=== PATIENT | female | born 1990 | race Caucasian/White ===

== ENCOUNTER 2017-03-22 15:09 | Emergency (ER) | payer OTHER ==
[~2017-03-22] VITALS: Ht 160 cm; Wt 68.8 kg
[~2017-03-22 15:09] MED LIST: [UNRECOGNIZED DRUG - OTHER] INJ
[2017-03-22 15:26] VITALS: TEMP 36.6; Ht 160 cm; Wt 68.8 kg
[2017-03-22] MEDS ORDERED: ONDANSETRON INJ 2 MG/ML 2 ML VIAL IV STA (16:58)
[2017-03-22] MEDS ORDERED: SODIUM CHLORIDE 0.9% 1000ML 1,000 ML IV STA (16:58)
[2017-03-22] MEDS ORDERED: MoRPHine SULFATE 10 MG/ML CARP/VIAL IV STA (16:58)
[2017-03-22] MEDS ORDERED: OPTIRAY 320 IV PRN (17:15)
--- NOTE | 2017-03-22 17:24 | EMERGENCY ROOM VISIT NOTE ---
History First contact with patient: 16:39 Chief Complaint: ABDOMINAL PAIN Stated Complaint: WYATT, STOMACH PAIN ON RT SIDE, BACK PAIN Nursing Triage Summary: Pt states hx of migraines. Per dr nathan, "went off migraine meds about two months ago. I was fine until I got sick on Fri. I had a bad h/a, stomach pains and was throwing up. I couldn't keep anything down for 1.5 days." Continues to have right sided abd pain. History of Present Illness The patient is a 26 year old female who presents to the Emergency Room with complaints of right-sided abdominal pain and migraine. The patient states that she developed a headache 4 days ago. She reports associated nausea and vomiting. She states that she then developed pain in her abdomen. She does report that she ate [employer] prior to the onset of symptoms. Since then, she has had persistent right-sided abdominal pain, headache and nausea. He she reports she has not had an appetite and has not been able to keep any food down. She denies any previous abdominal surgeries. She does report that her urine was foul-smelling approximately one month ago but denies any current urinary symptoms. She denies any abnormal vaginal discharge, chest pain or shortness of breath. She denies fevers/chills. She denies chance of . She rates her discomfort a 7/10. She has tried ibuprofen at home without relief. Review of Systems A complete 10 point review of systems was reviewed with the patient with pertinent positives and negatives as per history of present illness. All else were negative. Family History Diabetes mellitus FH: cancer Seizures Social History Smoking Status: Never Smoker Alcohol Use: none Marital Status: single Housing Status: lives with friends Occupation Status: employed Current/Historical Medications Scheduled Control Pills ( Control Pills), 1 TAB PO DAILY Scheduled PRN Hydrocodone/Acetaminophen 5MG/325MG (Sims 5MG/325MG), 1-2 TABLET PO Q4H PRN for Pain Allergies Coded Allergies: No Known Allergies (Unverified , 02/23/16) Physical Exam Vital Signs Date Time Temp Pulse Resp B/P (MAP) Pulse Ox O2 Delivery O2 Flow Rate FiO2 03/22/17 21:21 74 18 123/74 99 03/22/17 20:08 74 18 123/74 99 Room Air 03/22/17 18:26 89 18 107/81 98 Room Air 03/22/17 15:26 36.6 77 18 138/82 95 Room Air Physical Exam VITALS: Vitals are noted on the nurse's note and reviewed by myself. Vital signs stable. GENERAL: This is a 26-year-old female, in no acute distress, nondiaphoretic, well-developed well-nourished. SKIN: Capillary reflex less than 2 seconds. HEENT: Normocephalic. PERRLA. EOMI. Nares patent. Mucous membranes moist. Neck is supple without nuchal rigidity. HEART: Regular rate and rhythm without murmurs gallops or rubs. LUNGS: Clear to auscultation bilaterally without wheezes, rales or rhonchi. ABDOMEN: Positive bowel sounds x 4. Soft, moderate tenderness over the right lower quadrant. No guarding or rebound tenderness. NEURO: Patient was alert and oriented to person place and time. Medical Decision & Procedures ER Provider Diagnostic Interpretation: CT SCAN OF THE ABDOMEN AND PELVIS WITH IV CONTRAST IMPRESSION: 1. There are no acute infectious or inflammatory findings in the abdomen or pelvis. 2. There is 12 mm of anterolisthesis at L5-S1. There is advanced disc space narrowing at this level and likely severe central canal stenosis. Laboratory Results 03/22/17 18:15 Red Blood Count 4.64, Mean Corpuscular Volume 86.6, Mean Corpuscular Hemoglobin 28.4, Mean Corpuscular Hemoglobin Concent 32.8, Mean Platelet Volume 9.0, Neutrophils (%) (Auto) 71.2, Lymphocytes (%) (Auto) 22.5, Monocytes (%) (Auto) 4.3, Eosinophils (%) (Auto) 1.4, Basophils (%) (Auto) 0.4, Neutrophils # (Auto) 6.39, Lymphocytes # (Auto) 2.02, Monocytes # (Auto) 0.39, Eosinophils # (Auto) 0.13, Basophils # (Auto) 0.04 03/22/17 18:15 Test 03/22/17 18:15 03/22/17 18:25 White Blood Count 8.99 K/uL (4.8-10.8) Red Blood Count 4.64 M/uL (4.2-5.4) Hemoglobin 13.2 g/dL (12.0-16.0) Hematocrit 40.2 % (37-47) Mean Corpuscular Volume 86.6 fL (80-100) Mean Corpuscular Hemoglobin 28.4 pg (25-34) Mean Corpuscular Hemoglobin Concent 32.8 g/dl (32-36) Platelet Count 381 K/uL (130-400) Mean Platelet Volume 9.0 fL (7.4-10.4) Neutrophils (%) (Auto) 71.2 % Lymphocytes (%) (Auto) 22.5 % Monocytes (%) (Auto) 4.3 % Eosinophils (%) (Auto) 1.4 % Basophils (%) (Auto) 0.4 % Neutrophils # (Auto) 6.39 K/uL (1.4-6.5) Lymphocytes # (Auto) 2.02 K/uL (1.2-3.4) Monocytes # (Auto) 0.39 K/uL (0.11-0.59) Eosinophils # (Auto) 0.13 K/uL (0-0.5) Basophils # (Auto) 0.04 K/uL (0-0.2) RDW Standard Deviation 41.9 fL (36.4-46.3) RDW Coefficient of Variation 13.2 % (11.5-14.5) Immature Granulocyte % (Auto) 0.2 % Immature Granulocyte # (Auto) 0.02 K/uL (0.00-0.02) Anion Gap 5.0 mmol/L (3-11) Est Creatinine Clear Calc Drug Dose 95.0 ml/min Estimated GFR () 111.2 Estimated GFR (Non- 95.9 BUN/Creatinine Ratio 15.3 (10-20) Calcium Level 8.8 mg/dl (8.5-10.1) Total Bilirubin 0.3 mg/dl (0.2-1) Aspartate Amino Transf (AST/SGOT) 16 U/L (15-37) Alanine Aminotransferase (ALT/SGPT) 33 U/L (12-78) Alkaline Phosphatase 71 U/L (45-117) Total Protein 7.7 gm/dl (6.4-8.2) Albumin 3.9 gm/dl (3.4-5.0) Globulin 3.8 gm/dl (2.5-4.0) Albumin/Globulin Ratio 1.0 (0.9-2) Lipase 150 U/L (73-393) Urine Color YELLOW Urine Appearance CLEAR (CLEAR) Urine pH 6.5 (4.5-7.5) Urine Specific [place] 1.007 (1.000-1.030) Urine Protein NEG (NEG) Urine Glucose (UA) NEG (NEG) Urine Ketones NEG (NEG) Urine Occult Blood NEG (NEG) Urine Nitrite NEG (NEG) Urine Bilirubin NEG (NEG) Urine Urobilinogen NEG (NEG) Urine Leukocyte Esterase NEG (NEG) Urine Test NEG (NEG) Medications Administered Medications (Trade) Dose Ordered Sig/Yaritza Route Start Time Stop Time Status Last Admin Dose Admin Sodium Chloride 1,000 ml @ 999 mls/hr Q1H1M STAT IV 03/22/17 16:58 03/22/17 17:58 DC 03/22/17 18:23 999 MLS/HR Ondansetron HCl (Zofran Inj) 4 mg NOW STAT IV 03/22/17 16:58 03/22/17 16:59 DC 03/22/17 18:23 4 MG Morphine Sulfate (MoRPHine SULFATE INJ) 6 mg NOW STAT IV 03/22/17 16:58 03/22/17 16:59 DC 03/22/17 18:23 6 MG Acetaminophen/ Hydrocodone Bitart (Sims 5/325mg Home Pack) 1 homepack UD ONCE PO 03/22/17 21:15 03/22/17 21:16 DC 03/22/17 21:17 1 HOMEPACK ED Course The patient was evaluated as above. Labs were drawn and IV access was obtained. Patient was medicated with 6 mg morphine IV and [address] scan was performed and read by radiology as above. Patient was reevaluated and findings were discussed. She was given a homepack of Sims. Discharge instructions were reviewed with the patient. The patient verbalized understanding of my assessment and treatment plan and was discharged home in good condition. Medical Decision Differential diagnosis includes appendicitis, ovarian cyst, gastritis, gastroenteritis, ovarian torsion, ectopic , urinary tract infection, among others. The patient is a 26-year-old female who presents today complaining of right upper quadrant abdominal pain. Labs revealed no leukocytosis, anemia or concerning electrolyte abnormalities. Urinalysis was not suggestive of infection. Urine was negative. CT scan did show evidence of lumbar disc disease, but no acute intra-abdominal pathology. The patient will be given a short course of narcotic and instructed to follow-up with her primary care provider for further evaluation of her pain. She should return here for any worsening or new/concerning symptoms. Based on the patient's presentation and work up, I feel the patient is stable for outpatient treatment. The patient was educated to return to the emergency department for any worsening of their current condition or new/concerning symptoms. She will follow up with primary care provider. Impression Primary Impression: Right lower quadrant abdominal pain Departure Information Dispostion Home / Self-Care Condition GOOD Prescriptions Hydrocodone/Acetaminophen 5MG/325MG (Sims 5MG/325MG) Tab 1-2 TABLET PO Q4H Y for Pain, #10 TAB For Initial Treatment Prov: Leisa Bishop PA-C 03/22/17 Referrals Jeni Childress D.O. (PCP) Patient Instructions My [facility] Additional Instructions You have been treated in the Emergency Department your Abdominal Pain. Laboratory results and imaging studies have ruled out any emergent causes for your abdominal pain which would warrant admission or surgery. CT scan did show a bulging disc in your back. You have been prescribed Sims to be used for pain control. This is a narcotic medication. You cannot drive or consume alcohol while on this medicine. This medicine should only be used for pain that cannot be controlled with over-the- counter pain medicines. For pain control, you can use the following [id number] medicines (if >12 yo): - Regular strength (325mg/tab) Tylenol (acetaminophen) 2 tabs every 4-6 hours as needed. Do not exceed 12 tablets in a 24 hour period. Avoid taking more than 4 grams (4000 mg) of Tylenol per day. This includes any other sources of acetaminophen you may take on a regular basis. - Regular strength (200 mg/tab) Advil (ibuprofen) 1-2 tabs every 4-6 hours as needed. Do not exceed a dose of 3200 mg per day. Drink plenty of water and stay well hydrated. As with any trip to the Emergency Department, you should follow-up with your Primary Care Provider from today's visit. Return to the emergency department if your symptoms worsen or for any new/ concerning symptoms.
[2017-03-22 18:32] LABS: BASO % 0.4 %; BASO ABS # 0.04 K/uL (0-0.2); COMPLETE YES; EOS % 1.4 %; HEMATOCRIT 40.2 % (37-47); IG% 0.2 %; LYMPH % 22.5 %; LYMPH ABS # 2.02 K/uL (1.2-3.4); MEAN CELL VOLUME 86.6 fL (80-100); MEAN CORPUSCULAR HEMOGLOBIN 28.4 pg (25-34); MEAN CORPUSCULAR HGB CONC 32.8 g/dl (32-36); MONO % 4.3 %; NEUT % 71.2 %; PLATELET COUNT 381 K/uL (130-400); RED BLOOD COUNT 4.64 M/uL (4.2-5.4); WHITE BLOOD COUNT 8.99 K/uL (4.8-10.8)
[2017-03-22 18:38] LABS: URINE APPEARANCE CLEAR (CLEAR); URINE BILIRUBIN NEG (NEG); URINE COLOR YELLOW; URINE NITRITE NEG (NEG); URINE PH 6.5 (4.5-7.5); URINE SPECIFIC GRAVITY 1.007 (1.000-1.030); UROBILINOGEN NEG (NEG); ZZUR CULT IF INDIC CLEAN CATCH NO
[2017-03-22 18:49] LABS: MANUAL MICROSCOPIC REQUIRED? NO; REVIEW REQ? NO
[2017-03-22 18:51] LABS: BUN/CREATININE RATIO 15.3 (10-20); CALCIUM 8.8 mg/dl (8.5-10.1); CREATININE 0.85 mg/dl (0.60-1.20); POTASSIUM 3.6 mmol/L (3.5-5.1)
--- NOTE | 2017-03-22 20:31 | DIAGNOSTIC IMAGING REPORT ---
CT SCAN OF THE ABDOMEN AND PELVIS WITH IV CONTRAST CLINICAL HISTORY: Right lower quadrant abdominal pain. COMPARISON STUDY: No priors. TECHNIQUE: Following the IV administration of 116 cc of Optiray 320, CT scan of the abdomen and pelvis is performed from the lung bases to the proximal femora. Images are reviewed in the axial, sagittal, and coronal planes. IV contrast was administered without complication. Automated dose control exposure was utilized. CT DOSE: 315.94 mGy.cm FINDINGS: Lung bases: The heart is normal in size and without pericardial effusion. The lung bases are clear. Liver: The contrast-enhanced liver is normal in size, contour, and attenuation. A subcentimeter hypodensity in segment IV seen on image #76 is of doubtful significance. There is no intrahepatic biliary ductal dilatation. The hepatic veins and portal veins are patent. Gallbladder: Unremarkable. Spleen: Normal in size and attenuation. Pancreas: Unremarkable. Adrenal glands: Unremarkable. Kidneys: The contrast enhanced kidneys are normal in size and without hydronephrosis. The kidneys enhance symmetrically. Abdominal vasculature: The abdominal aorta is normal in course and caliber. Bowel: The small bowel and colon are normal in course and caliber. The appendix is well-visualized and normal. Peritoneum: There is no intraperitoneal free air or abdominal ascites. There is a small fat-containing umbilical hernia. Lymphadenopathy: None. Pelvic viscera: The bladder, uterus, and adnexa are normal as visualized. There are bilateral ovarian follicles. Skeletal structures: No lytic or blastic lesions are seen. Mild lumbar scoliosis is observed. There is 12 mm anterolisthesis at L5-S1 with advanced degenerative disc space narrowing at this level and central canal stenosis. IMPRESSION: 1. There are no acute infectious or inflammatory findings in the abdomen or pelvis. 2. There is 12 mm of anterolisthesis at L5-S1. There is advanced disc space narrowing at this level and likely severe central canal stenosis. Electronically signed by: Los Sinclair M.D. 03/22/2017 8:29 PM Dictated Date/Time: 03/22/2017 8:23 PM
[2017-03-22] MEDS ORDERED: HYDR-5688 PO (21:03)
[2017-03-22] MEDS ORDERED: NORCO 5/325MG HOME PACK PO ONE (21:15)
[2017-03-22 21:21] VITALS: BP 123/74; PULSE 74; O2SAT 99
[2017-03-22] MEDS ORDERED: BCPILLS PO (22:17)
[2017-07-13] MEDS ORDERED: AMT50 PO (09:51)
[2017-09-23] MEDS ORDERED: PRED50TA PO (00:48)
[2017-09-23] MEDS ORDERED: CYCL10TA6 PO (00:48)
== END 2017-03-22 21:23 | disposition home or self-care (01) ==
LOC: C.EDB 15:10 → C.EDC 21:23
DX: R10.11 Right upper quadrant pain (principal); R10.31 Right lower quadrant pain; Z83.3 Family history of diabetes mellitus; Z80.9 Family history of malignant neoplasm, unspecified; Z82.0 Family history of epilepsy and other diseases of the nervous system

== ENCOUNTER 2017-05-17 11:47 | Emergency (ER) | payer OTHER ==
[~2017-05-17] VITALS: Ht 160 cm; Wt 67.6 kg
[~2017-05-17 11:47] MED LIST changes: +BCPILLS PO; +HYDR-5688 PO; -[UNRECOGNIZED DRUG - OTHER] INJ
[2017-05-17 11:49] VITALS: BP 148/79; TEMP 36.7; Ht 160 cm; Wt 67.6 kg
[2017-05-17] MEDS ORDERED: PHENAZOPYRIDINE HCL 200 MG TAB PO STA (12:00)
[2017-05-17] MEDS ORDERED: CEPHALEXIN MONOHYDRATE 250 MG CAP PO STA (12:00)
[2017-05-17] MEDS ORDERED: CEPH500C PO (12:07)
[2017-05-17] MEDS ORDERED: PHEN-876 PO (12:07)
--- NOTE | 2017-05-17 12:07 | EMERGENCY ROOM VISIT NOTE ---
History Report prepared by Danelle: Sofi Dean Under the Supervision of: Dr. Los Crockett M.D. First contact with patient: 11:53 Chief Complaint: URINARY SYMPTOMS Stated Complaint: BURNING WHEN PEEING AND BLEEDING History of Present Illness The patient is a 26 year old female who presents to the Emergency Room with complaints of worsening urinary symptoms beginning yesterday. The patient reports burning pain with urination and blood when she wipes after urinating. She rates her pain as a 6/10 in severity. Her LNMP ended 4 days ago. She has a history of UTIs. The patient denies fever, back pain, nausea, vomiting, diarrhea , abnormal vaginal discharge. Source of History: patient Onset: yesterday Position: other (bladder) Symptom Intensity: 6/10 Quality: burning Timing: worsening Associated Symptoms: + urinary symptoms (pt notes hematuria), No fevers, No nausea, No vomiting, No back pain, No diarrhea Note: Pt denies abnormal vaginal discharge. Review of Systems See HPI for pertinent positives & negatives. A total of 10 systems reviewed and were otherwise negative. Past Medical & Surgical Medical Problems: (1) Headache (2) Ovulation pain (3) Right lower quadrant abdominal pain Family History Diabetes mellitus FH: cancer Seizures Social History Smoking Status: Never Smoker Alcohol Use: none Marital Status: Housing Status: lives with significant other Occupation Status: employed Current/Historical Medications Scheduled Control Pills ( Control Pills), 1 TAB PO DAILY Cephalexin Monohydrate (Keflex), 500 MG PO TID Scheduled PRN Hydrocodone/Acetaminophen 5MG/325MG ([place] 5MG/325MG), 1-2 TABLET PO Q4H PRN for Pain Phenazopyridine HCl (Pyridium), 200 MG PO TID PRN for Frequency/Burning w/ Urination Allergies Coded Allergies: No Known Allergies (Unverified , 02/23/16) Physical Exam Vital Signs Date Time Temp Pulse Resp B/P (MAP) Pulse Ox O2 Delivery O2 Flow Rate FiO2 05/17/17 12:11 69 16 94 05/17/17 11:49 36.7 62 16 148/79 97 Room Air Physical Exam GENERAL: Patient is in no acute distress. HEENT: No acute trauma, normocephalic atraumatic, mucous membranes moist, no nasal congestion, no scleral icterus. NECK: No stridor, no adenopathy, no meningismus, trachea is midline. LUNGS: Clear to auscultation bilaterally, no wheeze, no rhonchi, breath sounds equal. HEART: Without murmurs gallops or rubs, regular rate and rhythm. ABDOMEN: Soft, mildly tender over the bladder, bowel sounds positive, no hernias , no peritonitis. BACK: No flank discomfort to percussion. EXTREMITIES: No cyanosis or edema, full range of motion of all the joints without pain or difficulty, no signs for acute trauma. NEUROLOGIC: Oriented x 3, no acute motor or sensory deficits, no focal weakness. SKIN: No rash, no jaundice, no diaphoresis. Medical Decision & Procedures Laboratory Results Test 05/17/17 11:56 Urine Test NEG (NEG) Laboratory results reviewed by me. Urine dip is positive for blood, nitrates, and leukocytes, consistent with infection. testing negative. Medications Administered Medications (Trade) Dose Ordered Sig/Yaritza Route Start Time Stop Time Status Last Admin Dose Admin Phenazopyridine HCl (Pyridium Tab) 200 mg NOW STAT PO 05/17/17 12:00 05/17/17 12:03 DC 05/17/17 12:05 200 MG Cephalexin Monohydrate (Keflex Cap) 500 mg NOW STAT PO 05/17/17 12:00 05/17/17 12:03 DC 05/17/17 12:06 500 MG ED Course 1153: The patient was evaluated in room C3. A complete history and physical exam was performed. 1200: Keflex 500 mg PO, Pyridium Tab 200 mg PO 1203: I reassessed the patient at this time. I discussed the results and treatment plan with the patient. I answered all pertaining questions that she had. She expressed understanding and verbalized agreement. The patient will be discharged home. Medical Decision Differential diagnoses includes UTI, , pyelonephritis, STD, vaginal irritation. The patient presents with urinary burning and some blood when she wiped after urinating. Urine dip shows evidence of infection, testing is negative. A urine culture has been ordered. The patient has no back pain, she has no fever. She is not toxic or febrile. She is not vomiting. The patient is being discharged with Pyridium and Keflex, oral doses of both were given here prior to discharge. Impression Primary Impression: Urinary tract infection Scribe Attestation The scribe's documentation has been prepared under my direction and personally reviewed by me in its entirety. I confirm that the note above accurately reflects all work, treatment, procedures, and medical decision making performed by me. Departure Information Dispostion Home / Self-Care Prescriptions Phenazopyridine HCl (Pyridium) 200 Mg Tab 200 MG PO TID Y for Frequency/Burning w/Urination, #6 TAB Prov: Los Crockett M.D. 05/17/17 Cephalexin Monohydrate (Keflex) 500 Mg Cap 500 MG PO TID for 5 Days, #15 CAP Prov: Los Crockett M.D. 05/17/17 Referrals Jeni Childress D.O. (PCP) Forms HOME CARE DOCUMENTATION FORM, IMPORTANT VISIT INFORMATION Patient Instructions My [facility] Additional Instructions Keflex 3x per day for 5 days rest fluids Pyridium 3x per day for burning return if worsening Problem Qualifiers Primary Impression: Urinary tract infection Urinary tract infection type: site unspecified Hematuria presence: with hematuria Qualified Codes: N39.0 - Urinary tract infection, site not specified ; R31.9 - Hematuria, unspecified
[2017-05-17 12:11] VITALS: PULSE 69; O2SAT 94
--- NOTE | 2017-05-19 13:21 | Pharmacy Progress Note ---
ED Pharmacist Culture FollowUp Date of Service: May 19, 2017. Patient was sent home with a prescription for cephalexin, which should cover the Proteus growing from the patient's urine culture, based on reported sensitivity to cefazolin..
[2017-07-13] MEDS ORDERED: AMT50 PO (09:51)
== END 2017-05-17 12:12 | disposition home or self-care (01) ==
LOC: C.EDB 11:50 → C.EDC 12:12
DX: N39.0 Urinary tract infection, site not specified (principal); R31.9 Hematuria, unspecified; Z87.440 Personal history of urinary (tract) infections; Z83.3 Family history of diabetes mellitus; Z82.0 Family history of epilepsy and other diseases of the nervous system

== ENCOUNTER → 2017-07-06 | Outpatient (CLI) | payer BC ==
[~2017-07-06] MED LIST changes: +AMT50 PO; -HYDR-5688 PO
--- NOTE | 2017-07-06 17:33 | DIAGNOSTIC IMAGING REPORT ---
MRI OF THE LUMBAR SPINE WITHOUT CONTRAST CLINICAL HISTORY: Lumbago. Sacroiliitis. COMPARISON STUDY: CT of the abdomen and pelvis March 22, 2017. TECHNIQUE: Utilizing a 1.5 Amaya magnet and dedicated coil, multiplanar, multiecho imaging of the lumbar spine was performed without IV contrast. FINDINGS: For purposes of numbering on this exam, the L5-S1 disc space is assigned to axial image 24 of 25. Exam is moderately compromised by motion artifact. There is 1 cm of anterolisthesis of L4 on S1. No definite L5 pars defects are identified. There is mild S-shaped curvature of the lumbar spine. No intracanalicular mass or fluid collection is present. Paravertebral soft tissues are unremarkable. L1-2: The central canal and neural foramen are patent. L2-3: The central canal and neural foramen are patent. L3-4: The central canal and neural foramen are patent. L4-5: The central canal and neural foramen are patent. L5-S1: There is anterolisthesis with uncovering of the disc. Moderate facet arthrosis is present. There is severe narrowing of the central canal with mild bilateral neural foraminal stenosis. IMPRESSION: 1. 1 cm of anterolisthesis of L5 on S1 with no L5 pars defects identified. Findings result in severe central canal narrowing at L5-S1 with mild narrowing of both neural foramen. Moderate facet arthrosis at this level. 2. Mild S-shaped curvature of the lumbar spine. Electronically signed by: Clay Garner M.D. 07/06/2017 5:32 PM Dictated Date/Time: 07/06/2017 4:22 PM
== END | disposition home or self-care (01) ==
LOC: C.MRIBC 13:30
PROVIDERS: ATTEND Physician Assistant Medical
DX: M46.1 Sacroiliitis, not elsewhere classified (principal); M48.07 Spinal stenosis, lumbosacral region; M41.26 Other idiopathic scoliosis, lumbar region; M47.817 Spondylosis without myelopathy or radiculopathy, lumbosacral region

== ENCOUNTER → 2017-07-15 | Outpatient (CLI) | payer BC ==
--- NOTE | 2017-07-15 13:57 | DIAGNOSTIC IMAGING REPORT ---
CHEST 2 VIEWS ROUTINE CLINICAL HISTORY: Fever, cough, flulike symptoms COMPARISON STUDY: No previous studies for comparison. FINDINGS: The cardiac and mediastinal contours are normal. There is no evidence of focal pulmonary consolidation. There is no evidence of failure. No pleural effusions are visualized.[ IMPRESSION: No active disease in the chest. Electronically signed by: Patricio Glass M.D. 07/15/2017 1:55 PM Dictated Date/Time: 07/15/2017 1:55 PM
== END | disposition home or self-care (01) ==
LOC: C.RAD1850 13:40
PROVIDERS: ATTEND Physician Assistant
DX: R05 Cough (principal); R50.9 Fever, unspecified; R68.89 Other general symptoms and signs

== ENCOUNTER → 2017-08-11 | Outpatient (CLI) | payer BC ==
--- NOTE | 2017-08-11 14:36 | DIAGNOSTIC IMAGING REPORT ---
PELVIC COMPLETE NON OB HISTORY: 26 years-old Female AMENORRHEA COMPARISON: CT 03/22/2017 TECHNIQUE: Multiple real-time sonographic images of the deep pelvic structures were obtained transabdominally and transvaginally assessing grayscale appearance, color and spectral flow FINDINGS: TRANSABDOMINAL: Anteflexed uterus measures 5.9 x 2.6 x 3.9 cm. Endometrium measures 0.4 cm. Right ovary measures 3.7 x 1.8 x 1.8 cm with arterial inflow. Left ovary measures 2.8 x 2.0 x 2.1 cm with arterial inflow. TRANSVAGINAL: Anteflexed uterus measures 5.9 x 3.1 x 4.4 cm. No myometrial mass lesion. Endometrium measures 0.5 cm. Right ovary measures 2.1 x 2.3 x 2.3 cm with arterial inflow documented. Left ovary measures 2.3 x 1.5 x 2.5 cm with arterial inflow. No adnexal mass lesions or significant free pelvic fluid. IMPRESSION: Unremarkable sonographic appearance of the uterus, endometrium and ovaries. The above report was generated using voice recognition software. It may contain grammatical, syntax or spelling errors. Electronically signed by: Deandre Vaughn M.D. 08/11/2017 2:35 PM Dictated Date/Time: 08/11/2017 2:28 PM
== END | disposition home or self-care (01) ==
LOC: C.ULTR 13:42
PROVIDERS: ATTEND Family Medicine
DX: N91.2 Amenorrhea, unspecified (principal)

== ENCOUNTER 2017-08-23 23:17 | Emergency (ER) | payer BC ==
[~2017-08-23] VITALS: Ht 160 cm; Wt 69.7 kg
[2017-08-23 23:22] VITALS: TEMP 36.5; Ht 160 cm; Wt 69.7 kg
[2017-08-24] MEDS ORDERED: KETOROLAC TROMETHAMINE 30 MG/ML VIAL IV STA (00:05)
[2017-08-24] MEDS ORDERED: SODIUM CHLORIDE 0.9% 1000ML 1,000 ML IV STA (00:05)
--- NOTE | 2017-08-24 00:20 | EMERGENCY ROOM VISIT NOTE ---
History Report prepared by Danelle: Immanuel Aggarwal Under the Supervision of: Dr. Noel La M.D. First contact with patient: 23:39 Chief Complaint: CARDIAC ASSESSMENT Stated Complaint: CHEST PAINS W/BURNING, LIGHT HEADED Nursing Triage Summary: c/o mid chest pain x 5 hours with nausea. denies cardiac history. History of Present Illness The patient is a 26 year old female who presents to the Emergency Room with complaints of constant chest pain beginning this evening. The patient states that she experienced similar symptoms yesterday. 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 She reports that her chest pain was located in the center of her chest and lasted for an hour before going away. Despite this other episode of chest pain, the patient states that she has not experienced symptoms similar to her current chest pain. She notes that she tried taking a Tums today with no relief of her symptoms and rates her pain as an 8/10. She denies any fevers, chills, cough, congestion, vomiting, SOB, and diarrhea. She notes that she was previously nauseous, but is not nauseous anymore. She denies any family history of early heart attacks. She reports that she has no history of blood clots, but has a history of spondylolisthesis. The patient states that she is not on oral contraception and that there is no chance that she is . She notes that her last normal menstrual period was two weeks ago. She reports that she has a history of migraine and takes headache medications at night. Source of History: patient Onset: this evening Position: chest Symptom Intensity: 8/10 Timing: constant Associated Symptoms: + nausea, No fevers, No chills, No cough, No SOB, No vomiting, No diarrhea Note: she denies any congestion. Review of Systems See HPI for pertinent positives and negatives. A total of ten systems were reviewed and were otherwise negative. Past Medical & Surgical Medical Problems: (1) Headache (2) Ovulation pain (3) Right lower quadrant abdominal pain (4) Spondylolisthesis Family History Diabetes mellitus FH: cancer Seizures Social History Smoking Status: Former Smoker Alcohol Use: none Marital Status: Housing Status: lives with significant other Occupation Status: employed Current/Historical Medications Scheduled Amitriptyline Hcl (Elavil), 10 MG PO HS Scheduled PRN Ibuprofen Tab (Motrin), 800 MG PO Q8H PRN for Pain Allergies Coded Allergies: BEE STING (Verified Allergy, Intermediate, localized swelling, 08/23/17) Physical Exam Vital Signs Date Time Temp Pulse Resp B/P (MAP) Pulse Ox O2 Delivery O2 Flow Rate FiO2 08/24/17 02:11 68 16 113/66 98 08/24/17 00:01 74 16 112/71 96 08/23/17 23:41 80 08/23/17 23:31 77 119/67 99 08/23/17 23:28 99 Ambu-Bag 08/23/17 23:22 36.5 66 20 125/79 99 Room Air Physical Exam GENERAL: Awake, alert, well-appearing, in no distress HENT: Normocephalic, atraumatic. Oropharynx unremarkable. Dry MM. EYES: Normal conjunctiva. Sclera non-icteric. NECK: Supple. No nuchal rigidity. FROM. No JVD. RESPIRATORY: Clear to auscultation. CARDIAC: Regular rate, normal rhythm. Extremities warm and well perfused. Pulses equal. ABDOMEN: Soft, non-distended. No tenderness to palpation. No rebound or guarding. No masses. RECTAL: Deferred. MUSCULOSKELETAL: Mild reproducible left anterior chest wall tenderness. The back is symmetrical on inspection without obvious abnormality. There is no CVA tenderness to palpation. No joint edema. LOWER EXTREMITIES: Calves are equal size bilaterally and non-tender. No edema. No discoloration. NEURO: Normal sensorium. No sensory or motor deficits noted. SKIN: No rash or jaundice noted. Medical Decision & Procedures ER Provider Diagnostic Interpretation: Radiology results as stated below per my review and radiologist interpretation: Chest X-RAY: Normal mediastinum, no gross infiltrates. Laboratory Results 08/23/17 23:38 Red Blood Count 4.67, Mean Corpuscular Volume 86.3, Mean Corpuscular Hemoglobin 29.6, Mean Corpuscular Hemoglobin Concent 34.2, Mean Platelet Volume 9.4, Neutrophils (%) (Auto) 56.6, Lymphocytes (%) (Auto) 32.3, Monocytes (%) (Auto) 9.0, Eosinophils (%) (Auto) 1.5, Basophils (%) (Auto) 0.4, Neutrophils # (Auto) 5.17, Lymphocytes # (Auto) 2.95, Monocytes # (Auto) 0.82, Eosinophils # (Auto) 0.14, Basophils # (Auto) 0.04 08/23/17 23:38 Test 08/23/17 23:38 White Blood Count 9.14 K/uL (4.8-10.8) Red Blood Count 4.67 M/uL (4.2-5.4) Hemoglobin 13.8 g/dL (12.0-16.0) Hematocrit 40.3 % (37-47) Mean Corpuscular Volume 86.3 fL (80-100) Mean Corpuscular Hemoglobin 29.6 pg (25-34) Mean Corpuscular Hemoglobin Concent 34.2 g/dl (32-36) Platelet Count 395 K/uL (130-400) Mean Platelet Volume 9.4 fL (7.4-10.4) Neutrophils (%) (Auto) 56.6 % Lymphocytes (%) (Auto) 32.3 % Monocytes (%) (Auto) 9.0 % Eosinophils (%) (Auto) 1.5 % Basophils (%) (Auto) 0.4 % Neutrophils # (Auto) 5.17 K/uL (1.4-6.5) Lymphocytes # (Auto) 2.95 K/uL (1.2-3.4) Monocytes # (Auto) 0.82 K/uL (0.11-0.59) Eosinophils # (Auto) 0.14 K/uL (0-0.5) Basophils # (Auto) 0.04 K/uL (0-0.2) RDW Standard Deviation 42.8 fL (36.4-46.3) RDW Coefficient of Variation 13.4 % (11.5-14.5) Immature Granulocyte % (Auto) 0.2 % Immature Granulocyte # (Auto) 0.02 K/uL (0.00-0.02) Anion Gap 7.0 mmol/L (3-11) Est Creatinine Clear Calc Drug Dose 86.4 ml/min Estimated GFR () 98.4 Estimated GFR (Non- 84.9 BUN/Creatinine Ratio 14.5 (10-20) Calcium Level 8.8 mg/dl (8.5-10.1) Total Bilirubin 0.2 mg/dl (0.2-1) Direct Bilirubin < 0.1 mg/dl (0-0.2) Aspartate Amino Transf (AST/SGOT) 19 U/L (15-37) Alanine Aminotransferase (ALT/SGPT) 28 U/L (12-78) Alkaline Phosphatase 79 U/L (45-117) Troponin I < 0.015 ng/ml (0-0.045) Total Protein 7.8 gm/dl (6.4-8.2) Albumin 3.9 gm/dl (3.4-5.0) Lipase 181 U/L (73-393) Human Chorionic Gonadotropin, Qual NEG (NEG) Laboratory results reviewed by me Medications Administered Medications (Trade) Dose Ordered Sig/Yaritza Route Start Time Stop Time Status Last Admin Dose Admin Sodium Chloride 1,000 ml @ 999 mls/hr Q1H1M STAT IV 08/24/17 00:05 08/24/17 01:05 DC 08/24/17 00:15 999 MLS/HR Ketorolac Tromethamine (Toradol Inj) 30 mg NOW STAT IV 08/24/17 00:05 08/24/17 00:10 DC 08/24/17 00:16 30 MG ECG Indication: chest pain Rate (beats per minute): 69 Rhythm: normal sinus Findings: no acute ischemic change, other (normal axis) ED Course 2359: The patient was evaluated in room C2. A complete history and physical exam was performed. 0205: I reevaluated and updated the patient. She will go home. 0224: I reevaluated the patient. Discussed results and discharge instructions: She verbalized understanding and agreement. The patient is ready for discharge. Medical Decision I reviewed the patient's past medical history, medications, and the nursing notes as described above. Differential diagnoses include: muscular strain, costochondritis, pneumonia, bronchitis, ACS, and pericarditis. The patient is a 26 y/o woman who presents to the ED with the c/o constant CP per HPI. On arrival the patient is uncomfortable but in NAD. AFVSS. EKG unremarkable. CXR negative. Labs unremarkable including wbc wnl and trop negative in the setting of constant pain. Heart score 1, low risk, thus ACS not likely. Patient feeling improved after IVF, toradol. Given reproducibility sx most c/w muscular strain. Findings and plan for follow-up reviewed with patient. Patient agreeable and d/c'd per discharge instructions. Medication Reconcilliation Current Medication List: was personally reviewed by me Blood Pressure Screening Patient's blood pressure: Normal blood pressure Impression Primary Impression: Chest wall pain Scribe Attestation The scribe's documentation has been prepared under my direction and personally reviewed by me in its entirety. I confirm that the note above accurately reflects all work, treatment, procedures, and medical decision making performed by me. Departure Information Dispostion Home / Self-Care Prescriptions Ibuprofen Tab (MOTRIN) 800 Mg Tab 800 MG PO Q8H Y for Pain for 7 Days, #21 TAB Prov: Noel La M.D. 08/24/17 Referrals Jeni Childress D.O. (PCP) Forms IMPORTANT VISIT INFORMATION Patient Instructions ED Chest Pain Costochondritis, My [facility] Additional Instructions Please follow up with your primary care physician in the next 1-3 days for re- evaluation. You likely have a muscular strain. Otherwise, your exam, EKG, chest xray, and lab results did not show signs of an emergent condition at this time. Ibuprofen for pain as needed. Ensure hydration. Return to the emergency department for worsening symptoms as described in the accompanying instructions.
[2017-08-24 00:26] LABS: BASO % 0.4 %; BASO ABS # 0.04 K/uL (0-0.2); COMPLETE YES; EOS % 1.5 %; HEMATOCRIT 40.3 % (37-47); IG% 0.2 %; LYMPH % 32.3 %; LYMPH ABS # 2.95 K/uL (1.2-3.4); MEAN CELL VOLUME 86.3 fL (80-100); MEAN CORPUSCULAR HEMOGLOBIN 29.6 pg (25-34); MEAN CORPUSCULAR HGB CONC 34.2 g/dl (32-36); MEAN PLATELET VOLUME 9.4 fL (7.4-10.4); NEUT % 56.6 %; PLATELET COUNT 395 K/uL (130-400); RED BLOOD COUNT 4.67 M/uL (4.2-5.4); WHITE BLOOD COUNT 9.14 K/uL (4.8-10.8)
[2017-08-24 00:33] LABS: ALT/SGPT 28 U/L (12-78); BLOOD UREA NITROGEN 14 mg/dl (7-18); BUN/CREATININE RATIO 14.5 (10-20); CALCIUM 8.8 mg/dl (8.5-10.1); CARBON DIOXIDE 28 mmol/L (21-32); CHLORIDE 106 mmol/L (98-107); CREATININE 0.94 mg/dl (0.60-1.20); GLUCOSE 86 mg/dl (70-99); SODIUM 141 mmol/L (136-145)
[2017-08-24 00:39] LABS: ALKALINE PHOSPHATASE 79 U/L (45-117); AST/SGOT 19 U/L (15-37)
[2017-08-24 00:43] LABS: PREG INTERNAL NEGATIVE QC NEG CLEAR BACKGROUND; PREG INTERNAL POSITIVE QC POS CONTROL LINE
[2017-08-24] MEDS ORDERED: IBUP-1451 PO (01:58)
[2017-08-24 02:11] VITALS: BP 113/66; PULSE 68; O2SAT 98
--- NOTE | 2017-08-24 06:29 | DIAGNOSTIC IMAGING REPORT ---
CHEST ONE VIEW PORTABLE CLINICAL HISTORY: Atypical chest pain COMPARISON STUDY: 07/15/2017 FINDINGS: The cardiac and mediastinal contours are normal. There is no evidence of focal pulmonary consolidation. There is no evidence of failure. No pleural effusions are visualized.[ IMPRESSION: No active disease in the chest. Electronically signed by: Patricio Glass M.D. 08/24/2017 6:28 AM Dictated Date/Time: 08/24/2017 6:28 AM
== END 2017-08-24 02:12 | disposition home or self-care (01) ==
LOC: C.EDB 23:18 → C.EDC 08-24 02:12
DX: R07.89 Other chest pain (principal); M43.10 Spondylolisthesis, site unspecified; Z83.3 Family history of diabetes mellitus; Z80.9 Family history of malignant neoplasm, unspecified; Z87.891 Personal history of nicotine dependence; Z79.899 Other long term (current) drug therapy

== ENCOUNTER 2017-10-26 16:27 | Emergency (ER) | payer BC, OTHER ==
[~2017-10-26] VITALS: Ht 160 cm; Wt 69.6 kg
[~2017-10-26 16:27] MED LIST changes: -BCPILLS PO
[2017-10-26 16:38] VITALS: TEMP 36.6; Ht 160 cm; Wt 69.6 kg
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
[2017-10-26] MEDS ORDERED: AMIT10TA6 PO (17:43)
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
[2017-10-26 19:02] VITALS: BP 106/64; PULSE 62; O2SAT 97
== END 2017-10-26 18:58 | disposition home or self-care (01) ==
LOC: C.EDB 16:29 → C.EDD 18:58
DX: M25.562 Pain in left knee (principal); R42 Dizziness and giddiness; V49.40XA Driver injured in collision with unspecified motor vehicles in traffic accident, initial encounter; Y93.89 Activity, other specified; Y99.8 Other external cause status; Z83.3 Family history of diabetes mellitus; Z82.0 Family history of epilepsy and other diseases of the nervous system

== ENCOUNTER → 2018-05-30 | Outpatient (CLI) | payer OTHER ==
[~2018-05-30] MED LIST changes: +AMIT10TA6 PO; -AMT50 PO
--- NOTE | 2018-05-30 13:09 | DIAGNOSTIC IMAGING REPORT ---
PELVIC ULTRASOUND CLINICAL HISTORY: Irregular menses. COMPARISON STUDY: Pelvic ultrasound August 11, 2017. TECHNIQUE: Transabdominal and transvaginal sonography of the pelvis was performed. FINDINGS: The uterus measures 6.4 x 3.2 x 3.7 cm. Endometrium is normal in thickness, measuring 8 mm. There is no free fluid. There is no adnexal mass. The right ovary measures 2.3 x 2 x 1.9 cm and the left ovary measures 2.1 x 2.1 x 1.9 cm. There are numerous follicles within each ovary (approximately 20). IMPRESSION: 1. Unremarkable pelvic ultrasound. 2. Numerous small follicles within each ovary (approximately 20). This is likely within normal limits. Polycystic ovarian syndrome is considered less likely however could be correlated clinically. Electronically signed by: Clay Garner M.D. 05/30/2018 1:08 PM Dictated Date/Time: 05/30/2018 10:42 AM
== END | disposition home or self-care (01) ==
LOC: C.ULTR 09:37
PROVIDERS: ATTEND Family Medicine
DX: N92.6 Irregular menstruation, unspecified (principal)

== ENCOUNTER 2020-06-03 03:15 | Inpatient (IN) ==
[2020-06-03] MEDS: LACTATED RINGER'S 1,000 ML IV PRN ×3 (03:57→09:15)
[2020-06-03] MEDS ORDERED: PENICILLIN G POTASSIUM 6 MU in DEXTROSE 5% 250 ML IV STA (04:12)
[2020-06-03] MEDS ORDERED: OXYTOCIN 30 UNITS/500 ML BAG IV PRN ×2 (04:12→12:27)
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
[2020-06-03] MEDS ORDERED: PENICILLIN G POTASSIUM 3 MU in DEXTROSE 5% 100 ML IV PRN (04:30)
[2020-06-03 04:47] LABS: Hematocrit (blood only) 31.9 % (37-47); Hemoglobin 10.7 g/dL (12.0-16.0); Mean Corpuscular Hemoglobin 29.2 pg (25-34); Mean Corpuscular Volume 87.2 fL (80-100); Mean Platelet Volume 10.4 fL (7.4-10.4); Platelet Count 217 K/uL (130-400); RDW Coefficient of Variation 13.6 % (11.5-14.5); RDW Standard Deviation 43.4 fL (36.4-46.3); Red Blood Count 3.66 M/uL (4.2-5.4); White Blood Count 10.54 K/uL (4.8-10.8)
[2020-06-03 05:14] LABS: Fibrinogen 404 mg/dl (184-400); INR 0.9 (0.9-1.1); Prothrombin Time 9.8 Seconds (9.0-12.0)
[2020-06-03 05:15] LABS: Mean Corpuscular Hgb Conc 33.5 g/dL (32-36)
[2020-06-03] MEDS ORDERED: ePHEDrine sulfate 50 MG/ML AMP ONE (07:50)
[2020-06-03] MEDS ORDERED: fentaNYL citrate 100 MCG/2 ML VIAL ONE (07:50)
[2020-06-03] MEDS ORDERED: BUPIVACAINE 0.25% 30 ML VIAL ONE (07:50)
[2020-06-03] MEDS ORDERED: fentaNYL 2MCG/ML ROPIV 1.25MG/ML 100 ML BAG EPI ONE (07:51)
--- NOTE | 2020-06-03 07:51 | History & Physical Report ---
Date of Service June 03, 2020 Assessment & Plan (1) Spontaneous rupture of amniotic membranes: 29 yo at 37.6 wks admitted with SROM, VB, GBS+ in early labor VSS Afebrile FHR reassuring Coags and bed side US normal AROM'ed with clear fluid Plan for epidural for pain and monitor continuously All questions were answered (2) Vaginal bleeding during : (3) GBS (group B Streptococcus carrier), +RV culture, currently : History of Present Illness Primary Care Provider: Mel Fuchs MD Patient is a 29 yo at 37.[address] Hernandez this morning for SROM and in early labor Patient sates she had gush of bloody leaking at 0250 am, contractions started at 2100 last night but got closer and more regular after ROM +FM's Her VSS and FHR had been categ I and she was expectantly managed Coags and bed side US were normal Her has been uncomplicated except 1) GBS+, received 1st dose of PCN 2) Spondylolisthesis: needed anesthesia consult 3) Migraines Allergies Allergy/AdvReac Type Severity Reaction Status Date / Time amitriptyline Allergy Intermediate LIGHTHEADEDNESS, Verified 06/03/20 03:46 EYES ROLL BACK bee venom protein (honey bee) Allergy Intermediate localized Verified 06/03/20 03:46 swelling Home Medications Home Medications Medication Instructions Recorded Confirmed Type PNV cmb#95-ferrous fumarate-FA 1 tab PO QAM 12/25/18 06/03/20 History [] Patient History Medical History Chronic migraine Hx of abnormal cervical Pap smear Polycystic ovarian disease Spondylolisthesis Surgical History No significant past surgical history Family History Other No pertinent family history Social History Smoking Status: Never smoker Hx Alcohol Use: No Hx Substance Use: No Preferred Language: Finnish Communication Ability: Effective Cost Analyst Required: No Beliefs That Will Affect Care: None marital status: Current Living Situation: Spouse and Family Current Living Situation Comment: lives with , sister in law and nephew current occupational status: employed Other Information That Helps Us Care for You: No Feels Safe at Home: Yes Safety Concerns: Feels Safe At This Time [employer] History No h/o STD's, no h/o HSV Review of Systems All systems reviewed & are unremarkable except as noted in HPI & below Physical Exam Constitutional: WD/WN, vitals as above well developed, well nourished and + acute distress (uncomfortable with ctxs) Gastrointestinal (Abdomen): Abd: soft, NT, gravid, no epig or RUQ tenderness Bed side US: Vertex, placenta fundal posterior, appears normal, no collection seen, AFV adequate and appears clear Genitourinary: normal external appearance VE; small blood on pad, no blood when she coughs, Cervix 4-5cm/ 60%/ -2, bulging bag, AROM'ed clear fluid Results & Data Vital Signs (Past 12 Hours) Vital Signs Temp Pulse Resp BP 06/03/20 07:13 62 103/63 06/03/20 07:12 36.5 C 62 18 103/63 06/03/20 05:38 36.4 C L 18 06/03/20 03:44 36.9 C 18 06/03/20 03:35 78 112/76 Laboratory Results Lab Results 06/03/20 06/03/20 06/03/20 Range/Units 04:32 04:32 04:37 WBC 10.54 (4.8-10.8) K/uL RBC 3.66 L (4.2-5.4) M/uL Hgb 10.7 L (12.0-16.0) g/dL Hct 31.9 L (37-47) % MCV 87.2 (80-100) fL MCH 29.2 (25-34) pg MCHC 33.5 (32-36) g/dL RDW Std Deviation 43.4 (36.4-46.3) fL RDW Coeff of Bennett 13.6 (11.5-14.5) % Plt Count 217 (130-400) K/uL MPV 10.4 (7.4-10.4) fL PT 9.8 (9.0-12.0) Seconds INR 0.9 (0.9-1.1) Fibrinogen 404 H (184-400) mg/dl Blood Type O Positive Antibody Screen NEGATIVE Code Status & VTE Plan VTE Prophylaxis Plan VTE Prophylaxis will be ordered: No Monitoring External Monitor FHR: 130's, categ I, moderate variability, accels+, no decels Tocodynamometer Contractions q 2-3 min
--- NOTE | 2020-06-03 08:13 | Anesthesiology Consultation ---
Date of Service June 03, 2020 Assessment & Plan Chart Review Chart Review: Acceptable Risk for Surgery, Patient NOT seen in Pre Admission Testing and Acceptable Risk for Labor Epidural Consults Requested none ASA ASA2 Proposed Anesthesia Anesthesia Type: Labor Epidural and CSE History Height/Weight Height: 5 ft 3 in Weight: 68.492 kg Allergies Allergy/AdvReac Type Severity Reaction Status Date / Time amitriptyline Allergy Intermediate LIGHTHEADEDNESS, Verified 06/03/20 03:46 EYES ROLL BACK bee venom protein (honey bee) Allergy Intermediate localized Verified 06/03/20 03:46 swelling Medications Home Medications Medication Instructions Recorded Confirmed Last Taken PNV cmb#95-ferrous fumarate-FA 1 tab PO QAM 12/25/18 06/03/20 06/02/20 08:00 [] Active Medications Generic Name Dose Route Start Last Admin Trade Name Freq PRN Reason Stop Dose Admin Lactated Ringer's 1,000 mls @ 125 mls/hr 06/03/20 04:12 06/03/20 05:53 Lr IV 06/05/20 04:11 125 mls/hr .Q8H PRN Infusion L&D Protocol Protocol Past Medical History Medical History Chronic migraine Hx of abnormal cervical Pap smear Polycystic ovarian disease Spondylolisthesis Exercise / Class Metabolic Activity II 4-5 Yardwork/Stairs/Walk up hill Past Family History Family History Other No pertinent family history Past Surgical History Surgical History No significant past surgical history Past Anesthesia History No Hx of Anesthesia Complications and No Family Hx of Anesthesia Complications History of PONV No Hx of PONV and No Hx of Motion Sickness Social History Smoking Status: Never smoker Hx Alcohol Use: No Hx Substance Use: No substance use type: does not use Physical Exam Vital Signs Last Vital Signs Temp 36.5 C 06/03/20 07:12 Pulse 64 06/03/20 08:01 Resp 18 06/03/20 07:12 BP 117/79 06/03/20 08:01 Testing Laboratory Results 06/03/20 04:32 PT 9.8 Seconds (9.0-12.0) 06/03/20 04:37 INR 0.9 (0.9-1.1) 06/03/20 04:37 Blood Type O Positive 06/03/20 04:32 Antibody Screen NEGATIVE 06/03/20 04:32
[2020-06-03] MEDS ORDERED: ONDANSETRON INJ 2 MG/ML 2 ML VIAL IV PRN (08:51)
[2020-06-03] MEDS ORDERED: fentaNYL 2MCG/ML ROPIV 1.25MG/ML 100 ML BAG EPI PRN (08:51)
[2020-06-03] MEDS ORDERED: PROMETHAZINE HCL 25 MG in SODIUM CHLORIDE 0.9% 50 ML IV PRN (08:51)
[2020-06-03] MEDS ORDERED: ePHEDrine sulfate 50 MG/ML AMP IV PRN (08:51)
[2020-06-03] MEDS ORDERED: NALOXONE HCL 1 MG in SODIUM CHLORIDE 0.9% 1000ML 1,000 ML IV PRN (08:51)
[2020-06-03] MEDS ORDERED: DiphenhydrAMINE HCL 50 MG/ML VIAL IV PRN (08:51)
[2020-06-03] MEDS ORDERED: NALOXONE HCL 0.4 MG/1 ML VIAL/CARP IV PRN (08:51)
--- NOTE | 2020-06-03 11:47 | Obstetrical Progress Note ---
Date of Service June 03, 2020 Assessment & Plan Admission and Anticipated Discharge Date Admission Date: June 03, 2020 Subjective I checked her at 0935 and she had no blood on her pads She has been resting and started to feel leaking Bloody amniotic fluid on pads+ VE; 10/100%/+2, patient feels pressure and wants to push FHR categ I, good variability and accels, no decels Will push with ctxs and anticipate Results & Data ([facility]) Vital Signs (Past 12 Hours) Vital Signs Temp Pulse Resp BP Pulse Ox 06/03/20 11:43 81 100 06/03/20 11:40 99 H 92 06/03/20 11:38 109 H 100 06/03/20 11:33 78 98 06/03/20 11:30 69 108/72 06/03/20 11:28 72 97 06/03/20 11:23 70 100 06/03/20 11:18 69 100 06/03/20 11:14 77 96/59 L 06/03/20 11:13 78 100 06/03/20 11:08 81 100 06/03/20 11:03 73 99 06/03/20 10:59 72 97/62 L 06/03/20 10:58 70 99 06/03/20 10:53 80 100 06/03/20 10:48 100 H 100 06/03/20 10:44 71 100/62 06/03/20 10:43 79 100 06/03/20 10:38 70 99 06/03/20 10:33 72 99 06/03/20 10:28 68 103/58 L 98 06/03/20 10:25 85 104/69 06/03/20 10:23 83 97 06/03/20 10:22 75 100/56 L 06/03/20 10:19 72 91/55 L 06/03/20 10:18 65 96 06/03/20 10:16 71 96/57 L 06/03/20 10:13 67 94/57 L 97 06/03/20 10:10 65 100/59 L 06/03/20 10:08 84 98 06/03/20 10:07 65 96/58 L 06/03/20 10:04 70 94/55 L 06/03/20 10:03 64 96 06/03/20 10:01 72 93/54 L 06/03/20 09:58 64 97/55 L 96 06/03/20 09:55 65 96/56 L 06/03/20 09:53 68 97 06/03/20 09:52 64 102/56 L 06/03/20 09:49 64 99/56 L 06/03/20 09:48 63 97 06/03/20 09:46 74 97/55 L 06/03/20 09:43 74 97/56 L 97 06/03/20 09:40 86 97/55 L 06/03/20 09:38 61 96 06/03/20 09:37 70 93/52 L 06/03/20 09:34 70 95/53 L 06/03/20 09:33 69 95 06/03/20 09:31 76 96/54 L 06/03/20 09:28 93 H 97/54 L 97 06/03/20 09:26 67 102/59 L 06/03/20 09:23 99 H 98 06/03/20 09:22 98 H 115/59 L 06/03/20 09:19 62 105/59 L 06/03/20 09:18 62 96 06/03/20 09:16 85 109/62 06/03/20 09:14 55 L 114/60 06/03/20 09:13 60 96 06/03/20 09:12 65 92/60 L 06/03/20 09:11 70 88/57 L 06/03/20 09:10 74 86/54 L 06/03/20 09:08 81 85/51 L 98 06/03/20 09:06 75 91/59 L 06/03/20 09:04 79 98/54 L 06/03/20 09:03 79 98 06/03/20 09:01 89 106/59 L 06/03/20 09:00 71 105/55 L 06/03/20 08:58 99 H 111/55 L 97 06/03/20 08:55 58 L 107/55 L 06/03/20 08:54 78 213/166 H 06/03/20 08:53 77 99 06/03/20 08:49 79 76/43 L 06/03/20 08:48 79 73/40 L 97 06/03/20 08:45 52 L 198/112 H 06/03/20 08:43 76 97 06/03/20 08:42 64 108/65 06/03/20 08:40 62 127/61 06/03/20 08:38 70 99 06/03/20 08:37 93 H 120/77 06/03/20 08:36 91 H 121/81 06/03/20 08:33 76 100 06/03/20 08:28 84 100 06/03/20 08:25 83 118/76 06/03/20 08:23 111 H 99 06/03/20 08:01 64 117/79 06/03/20 07:13 36.5 C 62 20 103/63 06/03/20 07:12 36.5 C 62 18 103/63 06/03/20 05:38 36.4 C L 18 06/03/20 03:44 36.9 C 18 06/03/20 03:35 78 112/76
[2020-06-03] MEDS ORDERED: METHYLERGONOVINE MALEATE 0.2 MG/ML AMP ONE (12:24)
[2020-06-03] MEDS ORDERED: OXYCODONE/ACETAMINOPHEN 5mg/325mg TAB PO PRN (12:27)
[2020-06-03] MEDS ORDERED: SUPERCREAM 0.870% 15 GM JAR EXT PRN (12:27)
[2020-06-03] MEDS ORDERED: METHYLERGONOVINE MALEATE 0.2 MG/ML AMP IM ONE (12:27)
[2020-06-03] MEDS ORDERED: BENZOCAINE 20% AER SPR 82.5 GM CAN EXT PRN (12:27)
[2020-06-03] MEDS ORDERED: ACETAMINOPHEN 325 MG TAB PO PRN (12:27)
[2020-06-03] MEDS ORDERED: MEASLES, MUMPS & RUBELLA VIRUS VIAL SQ ONE (12:27)
[2020-06-03] MEDS ORDERED: bisacodyL 10 MG SUPP PR PRN (12:27)
[2020-06-03] MEDS ORDERED: HYDROCORTISONE ACETATE 25 MG SUPP PR PRN (12:27)
[2020-06-03] MEDS ORDERED: DIPHTHERIA/TETANUS/PERTUSSIS 0.5 ML SYR/VIAL IM ONE (12:27)
[2020-06-03 12:43] LABS: Basophils # (auto) 0.03 K/uL (0-0.2); Basophils % (auto) 0.2 %; Eosinophils # (auto) 0.01 K/uL (0-0.5); Eosinophils % (auto) 0.1 %; Hematocrit (blood only) 29.1 % (37-47); Hemoglobin 9.7 g/dL (12.0-16.0); Immature Granulocytes # (auto) 0.09 K/uL (0.00-0.02); Immature Granulocytes % (auto) 0.7 %; Lymphocytes % (auto) 6.9 %; Mean Corpuscular Hgb Conc 33.3 g/dL (32-36); Mean Corpuscular Volume 87.1 fL (80-100); Mean Platelet Volume 10.2 fL (7.4-10.4); Monocytes % (auto) 3.9 %; Neutrophils # (auto) 11.43 K/uL (1.4-6.5); Neutrophils % (auto) 88.2 %; Platelet Count 207 K/uL (130-400); RDW Coefficient of Variation 13.6 % (11.5-14.5); RDW Standard Deviation 43.8 fL (36.4-46.3); Red Blood Count 3.34 M/uL (4.2-5.4); White Blood Count 12.96 K/uL (4.8-10.8)
[2020-06-03 13:17] LABS: Fibrinogen 348 mg/dl (184-400); INR 0.9 (0.9-1.1); Partial Thromboplastin Ratio 0.9; Partial Thromboplastin Time 25.1 Seconds (21.0-31.0); Prothrombin Time 9.9 Seconds (9.0-12.0)
--- NOTE | 2020-06-03 13:27 | Anesthesia Procedure Note ---
Date of Service June 03, 2020 Anesthesia Post Epidural Note Vital Signs Vital Signs: Temp Pulse Resp BP Pulse Ox 36.5 C 65 20 102/56 L 100 06/03/20 07:13 06/03/20 13:14 06/03/20 07:13 06/03/20 13:14 06/03/20 12:28 Pain Intensity Upper Abdomen: Pain Intensity: 9 Lower Abdomen: Pain Intensity: 0 Notes Mental Status: alert / awake / arousable Nausea / Vomiting: adequately controlled Pain: adequately controlled Airway Patency, RR, SpO2: stable & adequate BP & HR: stable & adequate Hydration State: stable & adequate Neuraxial Anesthesia: was administered and sensory block is resolving Anesthetic Complications: no major complications apparent Epidural: Removed without complications and With tip intact
--- NOTE | 2020-06-03 20:23 | Delivery Summary ---
DATE OF OPERATION: 06/03/2020 TIME OF DELIVERY: 12:01 p.m. DETAILS OF DELIVERY: The patient was found to be fully dilated and desired to push. She pushed for about 20 minutes and delivered the head without difficulty. Shoulders were delivered with minimal traction. Baby was handed off to the mother where mouth and nose were suctioned. Cord was clamped x2 and cut at 1-minute delay. Baby was vigorously crying and moving. Cord blood was obtained. Vagina and perineum were checked for lacerations. There were first-degree lacerations in the hymen, lower vagina at 3 and 5 o'clock positions and on both labia bilaterally. Those were repaired with 2-0 Vicryl and 3-0 Vicryl on SH needle. Excellent hemostasis was achieved. Placenta was found to be in the vagina and delivered spontaneous as intact and complete. There was a dark blood clot attached to the placental edge on the membranes indicating abruption. The uterus was explored and all the clots were removed from the uterine cavity and no pieces of placenta nor membranes were felt. Fundus was firm. EBL was 400 ml. She was given IV Pitocin and IM Methergine. Mom and baby tolerated the procedure well. Sponge, lap, needle count was correct x2. Baby was a viable female , Apgars 8/9 and weight is 2796 gr. No complications happened and I was present during whole procedure. I attest to the content of the Intraoperative Record and any orders documented therein. Any exceptions are noted below. MTDD
[2020-06-03] MEDS: DOCUSATE SODIUM 100 MG CAP PO SCH (21:03)
[2020-06-04 07:14] LABS: Hemoglobin 8.8 g/dL (12.0-16.0); Mean Corpuscular Hemoglobin 29.5 pg (25-34); Mean Corpuscular Hgb Conc 33.8 g/dL (32-36); Mean Corpuscular Volume 87.2 fL (80-100); Mean Platelet Volume 10.6 fL (7.4-10.4); Platelet Count 184 K/uL (130-400); RDW Coefficient of Variation 13.7 % (11.5-14.5); Red Blood Count 2.98 M/uL (4.2-5.4); White Blood Count 9.93 K/uL (4.8-10.8)
[2020-06-04] MEDS: PRENATAL VITAMIN 1 TAB PO SCH (08:01)
[2020-06-04] MEDS: FERROUS SULFATE 325 MG TAB PO SCH (08:01)
[2020-06-04] MEDS: IBUPROFEN 600 MG TAB PO PRN ×2 (08:01→17:01)
[2020-06-04] MEDS: DOCUSATE SODIUM 100 MG CAP PO SCH ×2 (08:01→22:33)
--- NOTE | 2020-06-04 08:11 | Obstetrical Progress Note ---
Date of Service June 04, 2020 Assessment & Plan Admission and Anticipated Discharge Date Admission Date: June 03, 2020 Physical Exam Physical Exam: abdomen soft and non tender no calf tenderness ambulating well vaginal bleeding scant hgb 8.8 no dizziness on standing Results & Data ([facility]) Vital Signs (Past 12 Hours) Vital Signs Temp Pulse Resp BP 06/04/20 04:10 36.6 C 60 18 101/64 06/03/20 23:10 36.6 C 66 18 96/60 L 06/03/20 20:10 36.8 C 77 18 99/60 L
[2020-06-04] MEDS ORDERED: bisacodyL 5 MG TABEC PO SCH (20:00)
[2020-06-05 05:41] LABS: Hematocrit (blood only) 26.5 % (37-47); Hemoglobin 8.7 g/dL (12.0-16.0)
[2020-06-05] MEDS: FERROUS SULFATE 325 MG TAB PO SCH (07:58)
[2020-06-05] MEDS: PRENATAL VITAMIN 1 TAB PO SCH (07:58)
[2020-06-05] MEDS: DOCUSATE SODIUM 100 MG CAP PO SCH (07:58)
--- NOTE | 2020-06-05 10:43 | Obstetrical Progress Note ---
Date of Service June 05, 2020 Assessment & Plan Admission and Anticipated Discharge Date Admission Date: June 03, 2020 Subjective PPD#2 stable OOB tolerating diet passing gas Physical Exam Constitutional: WD/WN, vitals as above comfortable no edema neg Kathia's fundus firm for d/c today Results & Data ([facility]) Vital Signs (Past 12 Hours) Vital Signs Temp Pulse Resp BP Pulse Ox 06/05/20 07:57 36.9 C 70 18 90/59 L 95 06/04/20 23:55 36.8 C 69 14 96/59 L 97 Laboratory Results Laboratory Results - last 72 hr 06/03/20 06/03/20 06/03/20 04:32 04:32 04:37 WBC 10.54 RBC 3.66 L Hgb 10.7 L Hct 31.9 L MCV 87.2 MCH 29.2 MCHC 33.5 RDW Std Deviation 43.4 RDW Coeff of Bennett 13.6 Plt Count 217 MPV 10.4 Immature Gran % (Auto) Neut % (Auto) Lymph % (Auto) [place] % (Auto) Eos % (Auto) Baso % (Auto) Neut # (Auto) Lymph # (Auto) [place] # (Auto) Eos # (Auto) Baso # (Auto) Immature Gran # (Auto) PT 9.8 INR 0.9 APTT PTT Ratio Fibrinogen 404 H COVID-19 Eval Order COVID-19 PCR Blood Type O Positive Antibody Screen NEGATIVE 06/03/20 06/03/20 06/03/20 08:10 08:10 12:31 WBC 12.96 H RBC 3.34 L Hgb 9.7 L Hct 29.1 L MCV 87.1 MCH 29.0 MCHC 33.3 RDW Std Deviation 43.8 RDW Coeff of Bennett 13.6 Plt Count 207 MPV 10.2 Immature Gran % (Auto) 0.7 Neut % (Auto) 88.2 Lymph % (Auto) 6.9 [place] % (Auto) 3.9 Eos % (Auto) 0.1 Baso % (Auto) 0.2 Neut # (Auto) 11.43 H Lymph # (Auto) 0.90 L [place] # (Auto) 0.50 Eos # (Auto) 0.01 Baso # (Auto) 0.03 Immature Gran # (Auto) 0.09 H PT INR APTT PTT Ratio Fibrinogen COVID-19 Eval Order Covid19 Done at [facility] COVID-19 PCR NEGATIVE Blood Type Antibody Screen 06/03/20 06/04/20 06/05/20 12:31 06:27 05:26 WBC 9.93 RBC 2.98 L Hgb 8.8 L 8.7 L Hct 26.0 L 26.5 L MCV 87.2 MCH 29.5 MCHC 33.8 RDW Std Deviation 44.0 RDW Coeff of Bennett 13.7 Plt Count 184 MPV 10.6 H Immature Gran % (Auto) Neut % (Auto) Lymph % (Auto) [place] % (Auto) Eos % (Auto) Baso % (Auto) Neut # (Auto) Lymph # (Auto) [place] # (Auto) Eos # (Auto) Baso # (Auto) Immature Gran # (Auto) PT 9.9 INR 0.9 APTT 25.1 PTT Ratio 0.9 Fibrinogen 348 COVID-19 Eval Order COVID-19 PCR Blood Type Antibody Screen
== END 2020-06-05 13:40 | disposition home or self-care (01) | DRG 807 ==
LOC: OPB 03:15 → 4S1 03:24 → 4S2 15:00

== ENCOUNTER 2021-05-17 14:58 | Observation (INO) ==
[2021-05-17] MEDS ORDERED: oxyCODONE/ACETAMINOPHEN 5mg/325mg TAB PO PRN (15:06)
[2021-05-17] MEDS ORDERED: ACETAMINOPHEN 325 MG TAB PO PRN (15:06)
[2021-05-17 15:31] LABS: Appearance Urine Turbid (Clear); Bacteria Urine Automated Negative (Negative); Bilirubin Urine Negative (Negative); Blood Urine Negative (Negative); Color Urine Yellow; Epithelial Cell Urine Auto >30 /lpf (0-5); Glucose Urine UA Negative (Negative); Ketones Urine 2+ (Negative); Leukocyte Esterase Urine Trace (Negative); Nitrite Urine Negative (Negative); Protein Urine Negative (Negative); RBC Urine Automated 0-4 /hpf (0-4); Specific Gravity Urine 1.018 (1.000-1.030); Urobilinogen Urine Negative (Negative)
[2021-05-17 16:14] LABS: Basophils # (auto) 0.01 K/uL (0-0.2); Basophils % (auto) 0.1 %; Eosinophils # (auto) 0.04 K/uL (0-0.5); Eosinophils % (auto) 0.4 %; Hematocrit (blood only) 31.9 % (37-47); Hemoglobin 10.2 g/dL (12.0-16.0); Immature Granulocytes # (auto) 0.05 K/uL (0.00-0.02); Immature Granulocytes % (auto) 0.5 %; Lymphocytes # (auto) 1.25 K/uL (1.2-3.4); Lymphocytes % (auto) 12.9 %; Mean Corpuscular Hemoglobin 27.3 pg (25-34); Mean Corpuscular Volume 85.5 fL (80-100); Mean Platelet Volume 9.5 fL (7.4-10.4); Monocytes # (auto) 0.49 K/uL (0.11-0.59); Monocytes % (auto) 5.1 %; Neutrophils # (auto) 7.82 K/uL (1.4-6.5); Platelet Count 259 K/uL (130-400); RDW Coefficient of Variation 15.3 % (11.5-14.5); RDW Standard Deviation 47.8 fL (36.4-46.3); Red Blood Count 3.73 M/uL (4.2-5.4); White Blood Count 9.66 K/uL (4.8-10.8)
[2021-05-17] MEDS ORDERED: PENICILLIN G POTASSIUM 3 MU in DEXTROSE 5% 100 ML IV PRN (16:28)
[2021-05-17] MEDS ORDERED: OXYTOCIN 30 UNITS/500 ML BAG IV PRN (16:28)
[2021-05-17] MEDS: LACTATED RINGER'S 1,000 ML IV PRN ×3 (16:30→20:50)
[2021-05-17] MEDS ORDERED: PENICILLIN G POTASSIUM 6 MU in DEXTROSE 5% 250 ML IV SCH (16:45)
--- NOTE | 2021-05-17 16:46 | History & Physical Report ---
Date of Service May 17, 2021 Assessment & Plan (1) GBS (group B Streptococcus carrier), +RV culture, currently : (2) Abdominal pain affecting : (3) uterine contractions in third trimester, antepartum: Plan: 30-year-old -0-0-1 at 36 weeks and 4 days of gestation presenting with abdominal pain since May 15, 2021 when her cervix was 2 cm dilated, Found to have uterine contractions on the monitor and her cervix changed to 4-5 cm today, Vital signs stable afebrile, heart rate reassuring, GBS positive, Plan to admit, labs, monitor, IV fluid bolus, IV penicillin and reevaluate. Patient understands it will be expectant management due to being unless she will go into active labor and delivers today. Admission and Anticipated Discharge Date Admission Date: May 17, 2021 History of Present Illness Primary Care Provider: Mel Fuchs MD Patient is a 30-year-old -0-0-1 at 36 weeks and 4 days of gestation who has been feeling lower abdominal, pelvic pain and pressure for the last 3 days she has been resting and drinking and taking Tylenol and did not feel any better. She presented to labor and delivery and was put on monitor heart rate was reassuring and toco did not show any contractions. She was given 1 dose of Tylenol and she felt better her cervix was 3 to 4 cm 60 to 70% by her nurse. She was started on IV fluid bolus and toco start showing contractions every 2 to 4 minutes. I checked her in about half an hour after the first exam and found that her cervix was 45 cm dilated, 60% effaced head was at 2 station and with a tight bulging bag. Now she is being admitted. She denies leakage of fluid or vaginal bleeding. She reports good movements. Her has been complicated by 1 nausea and vomiting during , 2 short interval, delivered in May 2020, 3 history of depression, off meds, 4 history of abruption of placenta during labor with her first 5 history of migraines 6 antepartum anemia, hemoglobin 9.7 at 29 weeks and has been on iron 7 GBS positive Allergies Allergy/AdvReac Type Severity Reaction Status Date / Time amitriptyline Allergy Intermediate LIGHTHEADEDNESS, Verified 11/17/20 01:33 EYES ROLL BACK bee venom protein (honey bee) Allergy Intermediate localized Verified 11/17/20 01:33 swelling Home Medications Medication Instructions Recorded Confirmed Type vit no.95-ferrous 1 tab PO QAM 12/25/18 05/17/21 History fumarate 28 mg-folic acid 800 mcg tablet () ondansetron 4 mg disintegrating 4 mg PO Q6H PRN #15 tab 11/17/20 05/17/21 Rx tablet Patient History Medical History (Updated 05/17/21 @ 16:44 by Gala Galeas MD) Chronic migraine Hx of abnormal cervical Pap smear Polycystic ovarian disease Spondylolisthesis Surgical History No significant past surgical history Family History Other No pertinent family history Social History Smoking Status: Never smoker Hx Alcohol Use: No Hx Substance Use: No Preferred Language: Portuguese Communication Ability: Effective Striper Spray Gun Required: No Beliefs That Will Affect Care: None marital status: Current Living Situation: Spouse and Family Current Living Situation Comment: lives with , sister in law and nephew current occupational status: employed Feels Safe at Home: Yes Safety Concerns: Feels Safe At This Time Assistive Devices: None OB History Spontaneous vaginal delivery of a viable female on June 03, 2020 at 37 and 6 weeks of gestation, clinical abruption with vaginal bleeding during labor Review of Systems as per Subjective / HPI Physical Exam Constitutional: well developed and well nourished She seems comfortable, not in acute distress Gastrointestinal (Abdomen): normal bowel sounds, soft, nontender, no hepatosplenomegaly (Gravid, palpated mild irregular contractions) Genitourinary: normal external appearance OB Exam Abdomen: + vertex Manual OB Exam: + cervical dilation 4 cm, + cervical effacement 60% and + station -2 OB Exam Monitor Tracing: + external uterine monitor used and + category I Results & Data ([facility]) Vital Signs (Past 12 Hours) Vital Signs Temp Pulse Resp BP 05/17/21 15:28 37.0 C 18 05/17/21 15:07 73 133/60 Laboratory Results Lab Results 05/17/21 05/17/21 Range/Units 15:15 16:06 WBC 9.66 (4.8-10.8) K/uL RBC 3.73 L (4.2-5.4) M/uL Hgb 10.2 L (12.0-16.0) g/dL Hct 31.9 L (37-47) % MCV 85.5 (80-100) fL MCH 27.3 (25-34) pg MCHC 32.0 (32-36) g/dL RDW Std Deviation 47.8 H (36.4-46.3) fL RDW Coeff of Bennett 15.3 H (11.5-14.5) % Plt Count 259 (130-400) K/uL MPV 9.5 (7.4-10.4) fL Immature Gran % (Auto) 0.5 % Neut % (Auto) 81.0 % Lymph % (Auto) 12.9 % [place] % (Auto) 5.1 % Eos % (Auto) 0.4 % Baso % (Auto) 0.1 % Neut # (Auto) 7.82 H (1.4-6.5) K/uL Lymph # (Auto) 1.25 (1.2-3.4) K/uL [place] # (Auto) 0.49 (0.11-0.59) K/uL Eos # (Auto) 0.04 (0-0.5) K/uL Baso # (Auto) 0.01 (0-0.2) K/uL Immature Gran # (Auto) 0.05 H (0.00-0.02) K/uL Urine Color Yellow Urine Appearance Turbid A (Clear) Urine pH 7.0 (4.5-7.5) Ur Specific [place] 1.018 (1.000-1.030) Urine Protein Negative (Negative) Urine Glucose (UA) Negative (Negative) Urine Ketones 2+ H (Negative) Urine Blood Negative (Negative) Urine Nitrite Negative (Negative) Urine Bilirubin Negative (Negative) Urine Urobilinogen Negative (Negative) Ur Leukocyte Esterase Trace H (Negative) Urine WBC (Auto) 1-5 (0-5) /hpf Urine RBC (Auto) 0-4 (0-4) /hpf U Hyaline Cast (Auto) 1-5 (0-5) /lpf U Epithel Cells (Auto) >30 H (0-5) /lpf Urine Bacteria (Auto) Negative (Negative)
[2021-05-17 17:23] LABS: Fibrinogen 314 mg/dl (184-400); INR 0.9 (0.9-1.1); Partial Thromboplastin Ratio 0.9; Partial Thromboplastin Time 24.5 Seconds (21.0-31.0); Prothrombin Time 9.5 Seconds (9.0-12.0)
[2021-05-17] MEDS ORDERED: BETAMETH SOD PHOS/ACETATE IA 6 MG/ML IM STA (17:50)
[2021-05-17] MEDS ORDERED: ONDANSETRON INJ 2 MG/ML 2 ML VIAL IV PRN (18:15)
--- NOTE | 2021-05-17 18:45 | Obstetrical Progress Note ---
Date of Service May 17, 2021 Assessment & Plan Admission and Anticipated Discharge Date Admission Date: May 17, 2021 Subjective Patient is reevaluated She feels better than before Constant pain is gone but she feels crampy on and off, about every 10 min No LOF/VB +FM's She has received 1st dose of PCN and Betamethasone FHR reactive [place]: ctxs q 4-10 min VE: unchanged at 4-5 cm/ 60%/ -3, posterior this time and ballotable head Continue to monitor Will dip her urine for ketones Results & Data ([facility]) Vital Signs (Past 12 Hours) Vital Signs Temp Pulse Resp BP 05/17/21 18:24 94 H 103/58 L 05/17/21 18:09 93 H 104/56 L 05/17/21 17:30 20 05/17/21 17:00 18 05/17/21 16:30 20 05/17/21 16:00 20 05/17/21 15:28 37.0 C 18 05/17/21 15:07 73 133/60
[2021-05-17] MEDS ORDERED: TERBUTALINE SULFATE 1 MG/ML VIAL SQ ONE (20:54)
--- NOTE | 2021-05-17 20:58 | Obstetrical Progress Note ---
Date of Service May 17, 2021 Assessment & Plan Admission and Anticipated Discharge Date Admission Date: May 17, 2021 Subjective Patient is reevaluated. She feels better cramps are less intense than before and they have been spacing out. She walked in the hallway for about 20 minutes and pain did not get any worse. No leakage of fluid or vaginal bleeding. She reports good movements. Vital signs are stable afebrile, heart rate category 1, [place] irregular contractions every 4 to 10 minutes Vaginal exam is unchanged, cervix feels thicker and more posterior and presenting part is ballotable. Discuss with the patient about expectant management and observation overnight. Discussed with the patient and her about development of brain, maturation of lungs from now until 39 weeks trial of terbutaline to stop contractions and that the continue. They are hoping to go home since they are 11 months old is with a java developer and patient desires to eat regular diet. After long discussion patient decided to take terbutaline injection and then reevaluate. All questions were answered. Results & Data ([facility]) Vital Signs (Past 12 Hours) Vital Signs Temp Pulse Resp BP Pulse Ox 05/17/21 20:51 62 97 05/17/21 19:11 36.6 C 70 16 111/60 05/17/21 18:30 20 05/17/21 18:24 94 H 103/58 L 05/17/21 18:09 93 H 104/56 L 05/17/21 17:30 20 05/17/21 17:00 18 05/17/21 16:30 20 05/17/21 16:00 20 05/17/21 15:28 37.0 C 18 05/17/21 15:07 73 133/60
--- NOTE | 2021-05-17 22:16 | Obstetrical Progress Note ---
Date of Service May 17, 2021 Assessment & Plan Admission and Anticipated Discharge Date Admission Date: May 17, 2021 Subjective Patient feels well, has mild headache contraction for the last hour or so. She desires to be discharged home and eat. No side effects from terbutaline injection. heart rate had been category 1, [place] no contractions. Recommended to stay overnight for further observation recheck but patient desires to go home. Recommended to call back with abdominal pain, pelvic pain, contractions, leakage of fluid, vaginal bleeding or decreased movements. All questions were answered. Results & Data ([facility]) Vital Signs (Past 12 Hours) Vital Signs Temp Pulse Resp BP Pulse Ox 05/17/21 22:11 105 H 98 05/17/21 22:06 105 H 98 05/17/21 22:01 97 H 98 05/17/21 21:56 100 H 98 05/17/21 21:51 95 H 98 05/17/21 21:46 95 H 98 05/17/21 21:41 103 H 99 05/17/21 21:36 90 97 05/17/21 21:31 83 97 05/17/21 21:26 83 97 05/17/21 21:21 79 97 05/17/21 21:16 72 97 05/17/21 21:11 70 106/60 97 05/17/21 21:06 73 98 05/17/21 21:01 74 97 05/17/21 20:56 64 97 05/17/21 20:51 62 97 05/17/21 19:11 36.6 C 70 16 111/60 05/17/21 18:30 20 05/17/21 18:24 94 H 103/58 L 05/17/21 18:09 93 H 104/56 L 05/17/21 17:30 20 05/17/21 17:00 18 05/17/21 16:30 20 05/17/21 16:00 20 05/17/21 15:28 37.0 C 18 05/17/21 15:07 73 133/60
--- NOTE | 2021-05-20 18:10 | Discharge Summary (DS) ---
DATE OF ADMISSION: 05/17/2021 DATE OF DISCHARGE: 05/17/2021 DETAILS OF ADMISSION: The patient is a 30-year-old -0-0-1, at 36 weeks and 4 days of gestation, who presented to labor and delivery on 05/17 with continued abdominal pain for the last 3 days. She did not get any relief from drinking water and taking Tylenol and resting. Upon admission to the labor and delivery, her heart rate was reassuring, toco did not show much contractions. Her cervix was 3-4 cm, 60%-70% effaced by her nurse. She was started on IV fluid bolus and Tylenol and then toco started showing contractions every 2-4 minutes. I checked her in 45 minutes and her cervix changed to 4-5 cm dilated, 60% effaced, head at -2 station. We admitted her for labor due to regular contractions and cervical change. She was then felt better after IV fluids and Tylenol. That constant pain she came with disappeared. She was feeling crampy off and on about every 10 minutes. No leakage of fluid or vaginal bleeding. Positive movement. She was GBS positive. We gave her penicillin and betamethasone due to being early. Contractions were every 4-10 minutes and her cervix was unchanged. We kept her about 6 hours. Her contractions spaced out. She did not feel any pain or contraction. Her cervix was unchanged. Upon discussion, the patient desired to be discharged and go home and rest. heart rate was reassuring. Vital signs were stable, afebrile. I recommended to stay overnight, but the patient desired to be discharged due to her 11 month old baby being with a camp program director. Discharge instructions were given. Prescriptions were written. Recommended to call back with contractions, leakage of fluid or vaginal bleeding. She is to be seen in the office. All questions were answered. Job ID: [id number] [facility]
== END 2021-05-17 22:35 | disposition home or self-care (01) | DRG 833 ==
LOC: OPB 14:58 → 4S1 15:00 → INTOOBSV 16:29
DX: O99.820 Streptococcus B carrier state complicating pregnancy; Z3A.36 36 weeks gestation of pregnancy; O60.03 Preterm labor without delivery, third trimester

== ENCOUNTER 2021-06-01 03:12 | Inpatient (IN) ==
[2021-06-01] MEDS ORDERED: LACTATED RINGER'S 1,000 ML IV PRN (03:32)
[2021-06-01] MEDS ORDERED: PENICILLIN G POTASSIUM 3 MU in DEXTROSE 5% 100 ML IV PRN (03:32)
[2021-06-01] MEDS ORDERED: OXYTOCIN 30 UNITS/500 ML BAG IV PRN ×2 (03:32→04:16)
[2021-06-01] MEDS ORDERED: PENICILLIN G POTASSIUM 6 MU in DEXTROSE 5% 250 ML IV ONE (03:40)
[2021-06-01] MEDS ORDERED: IBUPROFEN 600 MG TAB PO ONE (04:07)
--- NOTE | 2021-06-01 04:15 | Delivery Summary ---
Vaginal Delivery Summary Date of Service June 01, 2021 Vaginal Delivery Summary Delivery Note 40 F P1001 at 37 weeks presents to L&D completely dilated and with bulging membranes. AROM with Amni-hook clear fluid followed by 1 push with delivery of live male EWELINA over intact perineum with Apgars 9/9 weight pending. Cord blood obtained followed by spontaneous delivery of intact placenta. No tears. EBL 200 ml. Final sponge and instrument count are correct. Mom and baby stabl e.
[2021-06-01] MEDS ORDERED: SUPERCREAM 0.870% 15 GM JAR EXT PRN (04:16)
[2021-06-01] MEDS ORDERED: HYDROCORTISONE ACETATE 25 MG SUPP PR PRN (04:16)
[2021-06-01] MEDS ORDERED: DIPHTHERIA/TETANUS/PERTUSSIS 0.5 ML SYR/VIAL IM ONE (04:16)
[2021-06-01] MEDS ORDERED: ACETAMINOPHEN 325 MG TAB PO PRN (04:16)
[2021-06-01] MEDS ORDERED: bisacodyL 10 MG SUPP PR PRN (04:16)
[2021-06-01] MEDS ORDERED: BENZOCAINE 20% AER SPR 82.5 GM CAN EXT PRN (04:16)
[2021-06-01] MEDS ORDERED: FERROUS SULFATE 325 MG TAB PO SCH (08:00)
--- NOTE | 2021-06-01 08:14 | Obstetrical Progress Note ---
Date of Service June 01, 2021 Assessment & Plan Admission and Anticipated Discharge Date Admission Date: June 01, 2021 Subjective Patient is seen and examined. She feels well, no complaints. Just came to pp room Ambulated without dizziness Voided without difficulty Bleeding is minimal No fever/ chills/ CP/ SOB/ N&V/ Leg pain Plans to Breast and bottle feed Vital Signs Temp Pulse Pulse Resp BP BP Pulse Ox 06/01/21 06:20 36.6 C 69 20 104/67 98 06/01/21 06:02 72 96/60 L 06/01/21 05:47 67 107/75 06/01/21 05:32 60 18 110/74 06/01/21 05:17 63 108/61 06/01/21 05:02 62 18 107/74 06/01/21 04:47 59 L 18 107/69 06/01/21 04:32 62 16 117/72 06/01/21 04:17 67 16 114/62 06/01/21 04:03 83 115/71 06/01/21 04:02 16 06/01/21 03:33 108 H 137/67 06/01/21 03:30 36.5 C 18 Lab Results 06/01/21 06/01/21 Range/Units 03:34 03:34 COVID-19 Eval Order Covid19 IDNow [facility] SARS-CoV-2, RNA, NAAT NEGATIVE (NEGATIVE) PE: General: Alert, orientedx3, NAD Abd: soft, NT, fundus firm, below Umbilicus Perineum intact, Lochia rubra minimal Ext; NT, no edema AP: 30 yo s/p , ppd# 0 VSS Afebrile doing well Continue routine care All questions were answered Results & Data ([facility]) Vital Signs (Past 12 Hours) Vital Signs Temp Pulse Pulse Resp BP BP Pulse Ox 06/01/21 06:20 36.6 C 69 20 104/67 98 06/01/21 06:02 72 96/60 L 06/01/21 05:47 67 107/75 06/01/21 05:32 60 18 110/74 06/01/21 05:17 63 108/61 06/01/21 05:02 62 18 107/74 06/01/21 04:47 59 L 18 107/69 08/09/21 04:32 62 16 117/72 08/09/21 04:17 67 16 114/62 06/01/21 04:03 83 115/71 06/01/21 04:02 16 06/01/21 03:33 108 H 137/67 06/01/21 03:30 36.5 C 18
[2021-06-01] MEDS: PRENATAL VITAMIN 1 TAB PO SCH (08:38)
[2021-06-01] MEDS: DOCUSATE SODIUM 100 MG CAP PO SCH ×2 (08:38→20:08)
[2021-06-01] MEDS: FERROUS SULFATE 325 MG TAB PO SCH ×2 (08:38→20:08)
[2021-06-01] MEDS ORDERED: NON-FORMULARY MEDICATION (Pnv Cmb#95-Ferrous Fumarate-Fa [Prenatal] 28 mg iron- 800 mcg Ta PO SCH (09:00)
[2021-06-01] MEDS: IBUPROFEN 600 MG TAB PO PRN ×2 (14:04→20:09)
[2021-06-02] MEDS: IBUPROFEN 600 MG TAB PO PRN ×3 (04:04→20:41)
[2021-06-02 06:15] LABS: Hematocrit (blood only) 26.3 % (37-47); Hemoglobin 8.6 g/dL (12.0-16.0); Mean Corpuscular Hemoglobin 27.7 pg (25-34); Mean Corpuscular Hgb Conc 32.7 g/dL (32-36); Mean Corpuscular Volume 84.8 fL (80-100); Mean Platelet Volume 9.7 fL (7.4-10.4); Platelet Count 247 K/uL (130-400); RDW Coefficient of Variation 15.4 % (11.5-14.5); White Blood Count 9.62 K/uL (4.8-10.8)
--- NOTE | 2021-06-02 11:50 | Obstetrical Progress Note ---
Date of Service June 02, 2021 Assessment & Plan Admission and Anticipated Discharge Date Admission Date: June 01, 2021 Subjective Patient is seen and examined. She feels well, no complaints. Ambulating without dizziness Voiding without difficulty Tolerating regular diet with out N&V Bleeding is minimal No fever/ chills/ CP/ SOB/ N&V/ Leg pain Breast and bottle feeding without problems Vital Signs Temp Pulse Resp BP Pulse Ox 06/02/21 08:15 36.6 C 63 16 100/66 97 06/02/21 04:00 36.7 C 54 L 16 96/63 L 98 Lab Results 06/01/21 06/01/21 06/02/21 Range/Units 03:34 03:34 05:57 WBC 9.62 (4.8-10.8) K/uL RBC 3.10 L (4.2-5.4) M/uL Hgb 8.6 L (12.0-16.0) g/dL Hct 26.3 L (37-47) % MCV 84.8 (80-100) fL MCH 27.7 (25-34) pg MCHC 32.7 (32-36) g/dL RDW Std Deviation 48.0 H (36.4-46.3) fL RDW Coeff of Bennett 15.4 H (11.5-14.5) % Plt Count 247 (130-400) K/uL MPV 9.7 (7.4-10.4) fL COVID[facility]19 [facility]-2, RNA, NAAT NEGATIVE (NEGATIVE) PE: General: Alert, orientedx3, NAD Abd: soft, NT, fundus firm, below Umbilicus Perineum intact, Lochia rubra minimal Ext; NT, no edema AP: 30 yo s/p , ppd# 1 VSS Afebrile doing well Anemic, iron bid Discussed how to take iron Continue routine care All questions were answered D/C home tomorrow Results & Data ([facility]) Vital Signs (Past 12 Hours) Vital Signs Temp Pulse Resp BP Pulse Ox 06/02/21 08:15 36.6 C 63 16 100/66 97 06/02/21 04:00 36.7 C 54 L 16 96/63 L 98
[2021-06-02] MEDS ORDERED: bisacodyL 5 MG TABEC PO SCH (20:00)
[2021-06-02] MEDS: FERROUS SULFATE 325 MG TAB PO SCH (20:41)
[2021-06-02] MEDS: DOCUSATE SODIUM 100 MG CAP PO SCH (20:41)
[2021-06-03 06:39] LABS: Hematocrit (blood only) 27.8 % (37-47)
--- NOTE | 2021-06-03 07:22 | Obstetrical Progress Note ---
Date of Service June 03, 2021 Subjective Ambulation: ambulating normally Voiding: no voiding problems Diet Tolerance:: regular diet Lochia:: Small Feeding Type:: breast feeding Current Pain Level(1-10): 0 doing well plans for d/c Physical Exam Constitutional WD/WN, vitals as above comfortable abdomen is soft and non-tender fundus firm neg Kathia's for d/c today Results & Data ([facility]) Vital Signs (Past 12 Hours) Vital Signs Temp Pulse Resp BP Pulse Ox 06/02/21 23:20 36.6 C 55 L 16 104/68 97 06/02/21 20:18 36.7 C 92 H 18 100/64 Laboratory Results Laboratory Results - last 72 hr 06/01/21 06/01/21 06/02/21 03:34 03:34 05:57 WBC 9.62 RBC 3.10 L Hgb 8.6 L Hct 26.3 L MCV 84.8 MCH 27.7 MCHC 32.7 RDW Std Deviation 48.0 H RDW Coeff of Bennett 15.4 H Plt Count 247 MPV 9.7 COVID-19 Eval Order Covid19 IDNow [facility] SARS-CoV-2, RNA, NAAT NEGATIVE 06/03/21 06:12 WBC RBC Hgb 9.0 L Hct 27.8 L MCV MCH MCHC RDW Std Deviation RDW Coeff of Bennett Plt Count MPV COVID-19 Eval Order SARS-CoV-2, RNA, NAAT
[2021-06-03] MEDS: FERROUS SULFATE 325 MG TAB PO SCH (07:38)
[2021-06-03] MEDS: DOCUSATE SODIUM 100 MG CAP PO SCH (07:38)
[2021-06-03] MEDS: PRENATAL VITAMIN 1 TAB PO SCH (07:38)
== END 2021-06-03 10:05 | disposition home or self-care (01) | DRG 807 ==
LOC: OPB 03:12 → 4S1 03:16 → 4S2 06:24
DX: O80 Encounter for full-term uncomplicated delivery; Z3A.38 38 weeks gestation of pregnancy; Z37.0 Single live birth